=== PATIENT | male | born 2000 | race Caucasian/White ===

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

== ENCOUNTER 2024-04-08 08:40 | Emergency (ER) | payer OTHER ==
[~2024-04-08] VITALS: Ht 182.9 cm; Wt 99.1 kg
[2024-04-08] MEDS ORDERED: AMOX875T2 PO (11:55)
[2024-04-08] MEDS: KETOROLAC 60MG 2ML VIAL IM ONE (11:59)
[2024-04-08 12:13] VITALS: BP 145/85; TEMP 97.4; O2SAT 98
== END 2024-04-08 12:48 | disposition home or self-care (01) ==
LOC: M ED 08:40
DX: K04.7 Periapical abscess without sinus (principal); L40.9 Psoriasis, unspecified; F12.10 Cannabis abuse, uncomplicated; Z79.1 Long term (current) use of non-steroidal anti-inflammatories (NSAID); Z79.2 Long term (current) use of antibiotics
CPT/HCPCS: 96372; 99283; J1885